=== PATIENT | male | born 1985 | race Caucasian/White ===

== ENCOUNTER 2018-01-02 18:23 | Emergency (ER) | payer OTHER ==
[2018-01-02] MEDS ORDERED: IBUP200C74 PO (18:32)
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
[2018-01-02 19:30] VITALS: BP 126/76
== END 2018-01-02 19:40 | disposition home or self-care (01) ==
LOC: ER 18:44
DX: S93.402A Sprain of unspecified ligament of left ankle, initial encounter (principal); V19.88XA Pedal cyclist (driver) (passenger) injured in other specified transport accidents, initial encounter; Y93.55 Activity, bike riding
CPT/HCPCS: 99282; 99283